=== PATIENT | female | born 1965 | race Caucasian/White ===

== ENCOUNTER 2018-03-17 12:09 | Outpatient (CLI) | payer BC | END 2018-03-17 12:10 | disposition home or self-care (01) | LOC: BICMAMMO 12:09 | PROVIDERS: ATTEND Family Medicine | DX: Z12.31 Encounter for screening mammogram for malignant neoplasm of breast (principal) | CPT/HCPCS: 77063; 77067 ==

== ENCOUNTER 2020-01-10 08:28 | Outpatient (CLI) | payer BC ==
--- NOTE | 2020-01-10 08:52 | ULT ---
ULTRASOUND ABDOMEN: HISTORY: Right upper quadrant pain, chronic diarrhea FINDINGS: The patient is post cholecystectomy. The liver, spleen, pancreas, kidneys and visualized portions of the aorta and IVC appear normal. The common duct measures 4mm in diameter. No free fluid is seen. IMPRESSION: Status post cholecystectomy, otherwise normal exam.
== END 2020-01-10 08:29 | disposition home or self-care (01) ==
LOC: BICULT 08:28
PROVIDERS: ATTEND Internal Medicine Gastroenterology
DX: K52.9 Noninfective gastroenteritis and colitis, unspecified (principal); R10.11 Right upper quadrant pain; K80.20 Calculus of gallbladder without cholecystitis without obstruction; Z90.49 Acquired absence of other specified parts of digestive tract
CPT/HCPCS: 93975